=== PATIENT | female | born 1970 | race Caucasian/White ===

== ENCOUNTER 2023-03-26 03:11 | Observation (INO) | payer OTHER ==
[~2023-03-26] VITALS: Ht 157.5 cm; Wt 94.9 kg
--- NOTE | 2023-03-26 03:11 | NUR ---
PT TO WEIGH STRETCHER UPON ARRIVAL; MD AT BEDSIDE FOR EVALUATION AND PT TO CT FOR STROKE ALERT
--- NOTE | 2023-03-26 03:30 | NUR ---
MULTIPLE ATTEMPTS FOR PERIPHERAL IV WITHOUT SUCCESS; NOTIFIED; MULTIPLE NURSES ATTEMPTING USING WARM COMPRESSES AND OTHER ALTERNATIVES; NO LABS COLLECTED AT THIS TIME
--- NOTE | 2023-03-26 04:38 | NUR ---
PT RETURNED FROM CT FOR CENTRAL LINE PLACEMENT
[2023-03-26] MEDS ORDERED: PLAVIX75 MG PO (04:45)
--- NOTE | 2023-03-26 04:50 | NUR ---
DR IRBY AT BEDSIDE FOR CENTRAL LINE PLACEMENT; UNSUCCESSFUL AT THIS TIME;
[2023-03-26 04:59] VITALS: BP 138/59
--- NOTE | 2023-03-26 05:20 | NUR ---
US GUIDED IV PLACED TO LAC WITH 18G; LABS COLLECTED; RADIOLOGY NOTIFIED OF PT STATUS
--- NOTE | 2023-03-26 05:28 | NUR ---
Reassessment of patient completed. No distress noted.
[2023-03-26 05:31] LABS: BASO% 0.5 % (0-3); EOS% 1.1 % (0-8); HEMATOCRIT 33.3 % (37.0-47.0); HEMOGLOBIN 10.5 g/dl (12.0-16.0); IMMATURE GRANULOCYTES 0.2 % (0.0-5.0); LYMPH% 13.5 % (15-41); MEAN CORPUSCULAR HGB CONC 31.5 g/dL CAL (32.0-36.0); MONO% 4.7 % (2-13); NEUT# 6.96 thou/uL (2.00-7.15); RED BLOOD COUNT 3.62 mill/uL (4.20-5.60)
[2023-03-26 05:41] LABS: ALBUMIN 4.2 g/dL (3.2-5.0); ALKALINE PHOSPHATASE 98 u/l (38-126); ANION GAP 14 (6-22 (CALC)); BILIRUBIN, TOTAL 0.3 mg/dL (0.02-1.3); BUN 30 mg/dL (7-17); BUN/CREATININE RATIO 25 (12-20 (CALC)); CARBON DIOXIDE 23 mmol/l (22-30); CHLORIDE 107 mmol/l (95-108); CREATININE 1.2 mg/dL (0.5-1.0); GFR FOR AFR.AMER. 57 ML/MIN (>=60 (CALC)); GFR OTHER RACES 47 ML/MIN (>=60 (CALC)); POTASSIUM 4.2 mmol/l (3.5-5.1); SGOT/AST 33 u/l (14-36); SODIUM 140 mmol/l (137-146); TOTAL PROTEIN 6.9 g/dL (6.3-8.2)
[2023-03-26 05:49] LABS: ACT PARTIAL THROMBO TIME 21.4 SECONDS (20.0-32.5); PROTHROMBIN TIME 9.3 SECONDS (9.0-12.5)
--- NOTE | 2023-03-26 06:06 | NUR ---
Reassessment of patient completed. No distress noted.
[2023-03-26] MEDS ORDERED: LISINOPRIL5 MG PO (06:46)
[2023-03-26] MEDS ORDERED: AMLODIPINE BESY10 MG PO (06:48)
[2023-03-26] MEDS ORDERED: ALPRAZOLAM0.5 MG PO (06:53)
[2023-03-26] MEDS ORDERED: PROZAC20 MG PO (06:54)
[2023-03-26] MEDS ORDERED: GABAPENTIN300 M2 PO (06:56)
[2023-03-26] MEDS ORDERED: METFORMIN HCL1000 MG PO (06:57)
--- NOTE | 2023-03-26 07:01 | NUR ---
report rec'd from avinash christianson
[2023-03-26 07:31] LABS: MYOGLOBIN 65 ng/mL (14.3-65.8)
--- NOTE | 2023-03-26 08:23 | NUR ---
pt ambulatory to br with sba, breakfast tray given
--- NOTE | 2023-03-26 09:05 | NUR ---
report given to amira
--- NOTE | 2023-03-26 09:51 | NUR ---
dr. mendez attempting central line. med surge refused pt until central line is placed
--- NOTE | 2023-03-26 10:23 | NUR ---
film shot for central line placement
[2023-03-26 10:58] VITALS: BP 150/76
--- NOTE | 2023-03-26 15:00 | NUR ---
PT ARRIVED VIA WC WITH YARD HOSTLER. PT ABLE TO AMBULATE TO BED 1X ASSIST. PT HAS UNSTEADY GAIT. ADMISSON ASSESSMENT COMPLETED. TELE MONITOR IN PLACE CONTINOUS MONITORING PER ED RIJ FLUSHED/PATENT. IVF INFUSING PER EMAR ORDER BLOOD RETURN IN ALL THREE LUMENS. 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 PT STATES NO PAIN AT THIS TIME. ORIENTATED PT TO ROOM AND CALL LIGHT SYSTEM, DRINK/SNACK PROVIDED. FALL/SAFTEY PRECAUTION IN PLACE. CALL LIGHT WITHIN REACH.
[2023-03-26 15:52] VITALS: BP 140/63
--- NOTE | 2023-03-26 16:00 | NUR ---
PT RESTING IN BED STATES NO NEEDS AT THIS TIME. BREATHING IS EVEN AND UNLABORED. FALL/SAFTEY PRECAUTIOJN IN PLACE. CALL LIGHT WITHIN REACH
--- NOTE | 2023-03-26 16:00 | NUR ---
PTS GLUCOSE WAS 244 MD/DL @1600 RN NOTIFIED.
[2023-03-26 18:57] VITALS: BP 153/73
--- NOTE | 2023-03-26 20:00 | NUR ---
PATIENT RESTING IN BED AT THIS TIME.AWAKE ALERT AND ORIENTEDX3. PATIENT WITH IVF PATENT AND INFUSING VIA RIGHT NECK TLC ORDERED. TELE MONITOR IN PLACE. SAFETY PRECAUTIONS REINFORCED.CALL LIGHT IN REACH. WILL CONT TO MONITOR.
[2023-03-26 23:24] VITALS: BP 144/70
--- NOTE | 2023-03-27 01:34 | NUR ---
PATIENT UP TO THE BR TO VOID CLEAR YELLOW URINE. PATIENT IS STILL UNSTEADY HER FEET. UA OBTAINED AND SENT TO LAB. MIN ASSIST BACK TO BED. C/O MIN PAIN TO LEFT ARM AND RIGHT NECK-3-4 ON PAIN SCALE. MEDICATED WITH TYLENOL 650MG PO. TELE MONITOR IN PLACE. IVF PATENT AND INFUSING VIA RIGHT NECK IJ. CALL LIGHT IN REACH. WILL CONT TO MONITOR.
[2023-03-27 01:50] LABS: URINE BILIRUBIN - DIPSTICK Negative (NEGATIVE); URINE BLOOD DIPSTICK Negative (NEGATIVE); URINE COLOR Yellow; URINE GLUCOSE - DIPSTICK 100 mg/dL (NEGATIVE); URINE KETONE Negative (NEGATIVE); URINE LEUK ESTERASE Trace (NEGATIVE); URINE NITRITE - DIPSTICK Negative (Negative); URINE PH 5.5 (4.5-8.0); URINE PROTEIN - DIPSTICK 30 mg/dL (NEG-TRACE); URINE UROBILINOGEN - DIPSTICK 0.2 E.U./dL (0.2)
[2023-03-27 01:51] LABS: URINE BACTERIA FEW hpf; URINE RBC 0-2 RBC/hpf (0-5); URINE SQUAMOUS EPITHELIAL CELL FEW EPI/hpf (0-FEW)
--- NOTE | 2023-03-27 03:14 | NUR ---
PATIENT AWAKE AND TALKING ON CELL PHONE AT THIS TIME. NO COMPLAINTS AT THIS TIME. IVF PATENT AND INFUSING VIA RIGHT NECK TLC ORDERED. TELE MONITOR IN PLACE. CALL LIGHT IN REACH. WILL CONT TO MONITOR.
[2023-03-27 04:00] VITALS: BP 138/67
[2023-03-27 04:37] VITALS: BP 138/67
--- NOTE | 2023-03-27 05:20 | NUR ---
PATIENT RESTING IN BED AT THIS TIME WITH EYES CLOSED. RESPS ARE EVEN AND UN- LABORED. IVF PATENT AND INFUSING VIA RIGHT TLC ORDERED. TELE MONITOR IN PLACE. CALL LIGHT IN REACH.WILL CONT TO MONITOR.
[2023-03-27 07:23] LABS: BASO% 0.5 % (0-3); EOS% 3.5 % (0-8); HEMATOCRIT 29.2 % (37.0-47.0); HEMOGLOBIN 9.3 g/dl (12.0-16.0); LYMPH% 31.1 % (15-41); MEAN CELL VOLUME 92.4 fL CALC (80.0-100.0); MEAN CORPUSCULAR HGB 29.4 pG CALC (26.0-32.0); MEAN CORPUSCULAR HGB CONC 31.8 g/dL CAL (32.0-36.0); MONO% 8.6 % (2-13); NEUT# 3.53 thou/uL (2.00-7.15); NEUT% 56.3 % (42-76); RED BLOOD COUNT 3.16 mill/uL (4.20-5.60); RED CELL DISTRI WIDTH 12.9 % (11.5-15.5)
[2023-03-27 07:30] VITALS: BP 150/69
[2023-03-27 07:56] LABS: ALBUMIN 3.4 g/dL (3.2-5.0); ALKALINE PHOSPHATASE 83 u/l (38-126); ANION GAP 10 (6-22 (CALC)); BILIRUBIN, TOTAL 0.4 mg/dL (0.02-1.3); BUN 18 mg/dL (7-17); BUN/CREATININE RATIO 26 (12-20 (CALC)); CARBON DIOXIDE 25 mmol/l (22-30); CHLORIDE 110 mmol/l (95-108); CREATININE 0.7 mg/dL (0.5-1.0); GFR FOR AFR.AMER. > 60 ML/MIN (>=60 (CALC)); GFR OTHER RACES > 60 ML/MIN (>=60 (CALC)); MAGNESIUM 1.8 mg/dL (1.6-2.3); POTASSIUM 4.2 mmol/l (3.5-5.1); SGOT/AST 24 u/l (14-36); SODIUM 141 mmol/l (137-146); TOTAL PROTEIN 5.8 g/dL (6.3-8.2)
[2023-03-27 10:52] VITALS: BP 145/67
--- NOTE | 2023-03-27 12:00 | NUR ---
ASSISTED TO BR AND BACK TO BED, GAIT SLIGHTLY UNSTEADY BUT PT IS VERY CAUTIOUS
[2023-03-27 15:19] VITALS: BP 136/65
[2023-03-27 15:21] VITALS: BP 113/77
--- NOTE | 2023-03-27 16:52 | NUR ---
Discharge instructions given. Patient verbalizes understanding of same. Discharged in good condition via Wheelchair to Home with friend. All belongings sent with pt.
== END 2023-03-27 16:52 | disposition home or self-care (01) | DRG 69 ==
LOC: ED 03:11 → ED-I 05:20 → ED 05:54 → MS2 05:55
PROVIDERS: Emergency Medicine; Nurse Practitioner Family; ADMIT Internal Medicine; ATTEND Internal Medicine
PROC: 05HM33Z Insertion of Infusion Device into Right Internal Jugular Vein, Percutaneous Approach (ICD-10-PCS; principal; 2023-03-26)
DX: G45.9 Transient cerebral ischemic attack, unspecified (principal); I10 Essential (primary) hypertension; I69.931 Monoplegia of upper limb following unspecified cerebrovascular disease affecting right dominant side; E11.40 Type 2 diabetes mellitus with diabetic neuropathy, unspecified; H54.61 Unqualified visual loss, right eye, normal vision left eye; E78.5 Hyperlipidemia, unspecified; G47.33 Obstructive sleep apnea (adult) (pediatric); M79.7 Fibromyalgia; Z79.84 Long term (current) use of oral hypoglycemic drugs; Z79.02 Long term (current) use of antithrombotics/antiplatelets; Z88.8 Allergy status to other drugs, medicaments and biological substances
CPT/HCPCS: G0378; J1650

== ENCOUNTER 2023-10-22 17:12 | Emergency (ER) | payer OTHER ==
[~2023-10-22] VITALS: Ht 157.5 cm; Wt 80.0 kg
[~2023-10-22 17:12] MED LIST: ALPRAZOLAM0.5 MG PO; AMLODIPINE BESY10 MG PO; GABAPENTIN300 M2 PO; LISINOPRIL5 MG PO; METFORMIN HCL1000 MG PO; PLAVIX75 MG PO; PROZAC20 MG PO
[2023-10-22 19:16] VITALS: BP 135/70
[2023-10-22 19:31] VITALS: BP 145/80
[2023-10-22 19:46] VITALS: BP 125/69
[2023-10-22] MEDS ORDERED: ONDANSETRON HCl 4 MG/2 ML SDV IV ONE (19:55)
[2023-10-22] MEDS ORDERED: SODIUM CHLORIDE 0.9% 1,000 ML IV ONE (19:55)
[2023-10-22] MEDS ORDERED: KETOROLAC TROMETHAMINE 30 MG/ML SDV IV ONE (19:55)
[2023-10-22 20:07] LABS: BASO% 0.4 % (0-3); EOS% 3.1 % (0-8); HEMATOCRIT 35.9 % (37.0-47.0); HEMOGLOBIN 11.5 g/dl (12.0-16.0); LYMPH% 23.3 % (15-41); MEAN CELL VOLUME 90.2 fL CALC (80.0-100.0); MEAN CORPUSCULAR HGB 28.9 pG CALC (26.0-32.0); MONO% 6.8 % (2-13); NEUT# 4.46 thou/uL (2.00-7.15); NEUT% 66.4 % (42-76); RED BLOOD COUNT 3.98 mill/uL (4.20-5.60); RED CELL DISTRI WIDTH 12.5 % (11.5-15.5)
[2023-10-22 20:19] LABS: ALBUMIN 4.1 g/dL (3.2-5.0); BILIRUBIN, TOTAL 0.6 mg/dL (0.02-1.3); TOTAL PROTEIN 7.4 g/dL (6.3-8.2)
[2023-10-22 21:12] LABS: URINE BLOOD DIPSTICK Negative (NEGATIVE); URINE GLUCOSE - DIPSTICK Negative (NEGATIVE); URINE KETONE Trace mg/dL (NEGATIVE); URINE NITRITE - DIPSTICK Negative (Negative); URINE PH 5.5 (4.5-8.0); URINE PROTEIN - DIPSTICK 100 mg/dL (NEG-TRACE); URINE SPECIFIC GRAVITY 1.025; URINE UROBILINOGEN - DIPSTICK 0.2 E.U./dL (0.2)
[2023-10-22 21:15] LABS: URINE COLOR Yellow; URINE LEUK ESTERASE Small (NEGATIVE)
[2023-10-22 21:21] LABS: URINE RBC 0-2 RBC/hpf (0-5); URINE SQUAMOUS EPITHELIAL CELL FEW EPI/hpf (0-FEW)
[2023-10-23] MEDS ORDERED: MORPHINE SULFATE 4 MG/ML VIAL IV ONE (00:20)
[2023-10-23 01:05] VITALS: BP 139/57
[2023-10-23 01:15] VITALS: BP 139/57
== END 2023-10-23 01:15 | disposition home or self-care (01) | DRG 392 ==
LOC: ED 17:12
PROVIDERS: Family Medicine
DX: R10.31 Right lower quadrant pain (principal); I10 Essential (primary) hypertension; E11.9 Type 2 diabetes mellitus without complications; M79.7 Fibromyalgia; Z86.73 Personal history of transient ischemic attack (TIA), and cerebral infarction without residual deficits; Z87.442 Personal history of urinary calculi; Z88.6 Allergy status to analgesic agent; Z88.1 Allergy status to other antibiotic agents; Z79.84 Long term (current) use of oral hypoglycemic drugs

== ENCOUNTER 2024-01-02 13:48 | Emergency (ER) | payer OTHER ==
[~2024-01-02] VITALS: Ht 157.5 cm; Wt 84.0 kg
[2024-01-02 14:23] LABS: EOS% 2.7 % (0-8); HEMATOCRIT 35.4 % (37.0-47.0); HEMOGLOBIN 10.7 g/dl (12.0-16.0); IMMATURE GRANULOCYTES 0.2 % (0.0-5.0); LYMPH% 22.6 % (15-41); MEAN CELL VOLUME 93.7 fL CALC (80.0-100.0); MEAN CORPUSCULAR HGB 28.3 pG CALC (26.0-32.0); MEAN CORPUSCULAR HGB CONC 30.2 g/dL CAL (32.0-36.0); MONO% 7.1 % (2-13); NEUT# 3.2 thou/uL (2.00-7.15); NEUT% 66.4 % (42-76); RED BLOOD COUNT 3.78 mill/uL (4.20-5.60); RED CELL DISTRI WIDTH 12.6 % (11.5-15.5)
[2024-01-02 14:33] LABS: BILIRUBIN, TOTAL 0.6 mg/dL (0.02-1.3); CREATININE 1.1 mg/dL (0.5-1.0); POTASSIUM 4.1 mmol/l (3.5-5.1); TOTAL PROTEIN 6.9 g/dL (6.3-8.2)
[2024-01-02 16:24] VITALS: BP 166/87
== END 2024-01-02 16:37 | disposition home or self-care (01) | DRG 125 ==
LOC: ED 13:48
PROVIDERS: Emergency Medicine
DX: H35.62 Retinal hemorrhage, left eye (principal)

== ENCOUNTER 2024-04-12 21:37 | Emergency (ER) | payer OTHER ==
[~2024-04-12] VITALS: Ht 157.5 cm; Wt 81.0 kg
[2024-04-12 22:29] LABS: BASO% 0.9 % (0-3); EOS% 2.5 % (0-8); HEMATOCRIT 33.2 % (37.0-47.0); HEMOGLOBIN 10.7 g/dl (12.0-16.0); IMMATURE GRANULOCYTES 0.2 % (0.0-5.0); LYMPH% 28.3 % (15-41); MEAN CELL VOLUME 89.7 fL CALC (80.0-100.0); MEAN CORPUSCULAR HGB 28.9 pG CALC (26.0-32.0); MEAN CORPUSCULAR HGB CONC 32.2 g/dL CAL (32.0-36.0); MONO% 7.9 % (2-13); NEUT# 3.33 thou/uL (2.00-7.15); NEUT% 60.2 % (42-76); RED BLOOD COUNT 3.7 mill/uL (4.20-5.60); RED CELL DISTRI WIDTH 11.9 % (11.5-15.5)
[2024-04-12 22:34] LABS: ALBUMIN 4.1 g/dL (3.2-5.0); BILIRUBIN, TOTAL 0.4 mg/dL (0.02-1.3); CREATININE 1.1 mg/dL (0.5-1.0); POTASSIUM 4.3 mmol/l (3.5-5.1); TOTAL PROTEIN 6.9 g/dL (6.3-8.2)
[2024-04-12 23:50] VITALS: BP 147/83
== END 2024-04-12 23:50 | disposition home or self-care (01) | DRG 125 ==
LOC: ED 21:37
PROVIDERS: Family Medicine
DX: E11.319 Type 2 diabetes mellitus with unspecified diabetic retinopathy without macular edema (principal); H35.042 Retinal micro-aneurysms, unspecified, left eye; I10 Essential (primary) hypertension; Z79.84 Long term (current) use of oral hypoglycemic drugs